=== PATIENT | female | born 1985 | race Two or more races ===

== ENCOUNTER 2017-06-02 14:57 | Emergency (ER) | payer MEDICAID ==
[~2017-06-02] VITALS: Ht 154.9 cm; Wt 59.0 kg
[2017-06-02 15:00] VITALS: Ht 154.9 cm; Wt 59.0 kg
[2017-06-02 16:21] LABS: URINE BLOOD (Dip) POC Trace-intact (NEGATIVE)
[2017-06-02 19:03] LABS: BASOPHIL # 0.1 10^3/ul (0.0-0.1); BASOPHILS % 0.5 % (0.0-2.0); EOSINOPHILS # 0.1 10^3/ul (0.0-0.5); EOSINOPHILS % 0.9 % (0.0-7.0); HEMATOCRIT 39.4 % (37.0-47.0); HEMOGLOBIN 13.4 g/dl (12.0-16.0); LYMPHOCYTES # 2.4 10^3/ul (0.8-2.9); LYMPHOCYTES % 21.5 % (15.0-51.0); MEAN CORPUSCULAR VOLUME 91.2 fl (82.0-101.0); MEAN PLATELET VOLUME 9.5 fl (7.4-10.4); MONOCYTE # 0.6 10^3/ul (0.3-0.9); MONOCYTES % 5.7 % (0.0-11.0); NEUTROPHILS % 71.1 % (39.0-77.0); PLATELET COUNT 235 10^3/UL (140-415); RED BLOOD COUNT 4.32 10^6/ul (4.20-5.40); RED CELL DISTRIBUTION WIDTH 12.1 % (11.5-14.5); WHITE BLOOD COUNT 11.3 10^3/ul (4.8-10.8)
[2017-06-02 19:11] LABS: ADD UMIC YES; UR ASCORBIC ACID NEGATIVE (NEGATIVE); UR BACTERIA FEW /HPF (NONE SEEN); UR BILIRUBIN (Dip) NEGATIVE (NEGATIVE); UR BLOOD (Dip) NEGATIVE (NEGATIVE); UR CLARITY SLIGHTLY CLOUDY (CLEAR); UR COLOR YELLOW (YELLOW); UR GLUCOSE (Dip) NEGATIVE (NEGATIVE); UR KETONES (Dip) NEGATIVE (NEGATIVE); UR LEUKOCYTE ESTERASE (Dip) 3+ Leu/ul (NEGATIVE); UR NITRITE (Dip) NEGATIVE (NEGATIVE); UR RBC 2 /HPF (0-5); UR SQUAMOUS EPITHELIAL CELL FEW /HPF (FEW); UR TOTAL PROTEIN (Dip) NEGATIVE (NEGATIVE); UR UROBILINOGEN (Dip) NEGATIVE (NEGATIVE)
--- NOTE | 2017-06-02 19:23 | RADRPT ---
PROCEDURE: US OB. CLINICAL INDICATION: No heart tone is outside clinic. Vaginal bleeding.. TECHNIQUE: Multiple sonographic images of the pelvis were obtained. Transabdominal and transvagin al views of the pelvis are available for review. The images were reviewed on a PACS workstation. COMPARISON: No prior studies are available for comparison. FINDINGS: A single intrauterine is identified. No heart motion is identified.. Gestational sac measures 2.21 cm diameter correspond to 7 weeks 0 days. pole crown rump length is 3 mm corres ponding to 5 weeks 6 days. There is a 1.9 x 1.3 x 1.9 cm subchorionic hemorrhage is identified adjac ent to the gestational sac. There is a 1.8 x 1.4 x 1.1 cm right-sided hemorrhagic/corpus luteum cys t. The ovaries otherwise unremarkable with vascular flow identified.. There is no adnexal mass. The re is no free fluid. IMPRESSION: 1. Single intrauterine gestation of approximately 7 weeks 0 days by gestational sac size and 5-week 6 days by crown rump length. No heart motion is identified. heart motion is typically s een at this size gestational sac and is usually visible at this size pole. Although findings a re suspicious for demise, a follow-up scan in a few days is recommended for confirmation. 2. Subchorionic hemorrhage present. 3. Hemorrhagic/corpus luteum right ovarian cyst. 4. No free fluid or adnexal mass. RPTAT: HMVK .Constantin Mcdermott MD, MD Date Time Electronically viewed and signed by .Constantin Mcdermott MD, MD on 06/02/2017 19:23 .K/
--- NOTE | 2017-06-17 07:20 | ERD ---
ER Documentation Chief Complaint Chief Complaint pt sent by PMD for repeat US, unable to see heartbeat approx 6 wks preg HPI This is a 32-year-old female who is currently 6 weeks who presents 30 minutes after ultrasound by AUTOMOTIVE SERVICES MANAGER. Patient states that the AUTOMOTIVE SERVICES MANAGER was concerned for demise. Patient states that blood tests were taken there as well. Patient denies any vaginal bleeding or pain. Denies any fever, chills , shortness of breath, chest pain, headache, abdominal pain, nausea or vomiting. No discharge dysuria or hematuria. Patient has no other complaints and describes no other associated manifestations. Nursing notes have been reviewed and are consistent with history given. ROS All systems reviewed and are negative except as per history of present illness. Medications Home Meds Active Scripts Acetaminophen* (Tylophen*) 500 Mg Capsule, 1 CAP PO Q6H Y for PAIN AND OR ELEVATED TEMP, #20 CAP Prov:FARNAZ GODDARD [employer] REP 06/13/17 Reported Medications [none] Unknown Strength No Conflict Check 06/13/17 Allergies Allergies: Coded Allergies: No Known Allergy (Unverified , 06/02/17) PMhx/Soc Medical and Surgical Hx: pt denies Medical Hx History of Surgery: Yes (CSECTION ) Hx Miscellaneous Medical Probl: No () Hx Alcohol Use: No Hx Substance Use: No Hx Tobacco Use: No Smoking Status: Never smoker Physical Exam Physical Exam Const: Healthy-appearing. Well-nourished. Well-developed. No acute distress. Abd: Soft, non tender, non distended. No guarding, masses. Normal bowel sounds. No McBurney's point tenderness. Head: Normocephalic, Atraumatic. Eyes: Non-injected; No scleral erythema, discharge or foreign body. EOMI and ORIANA bilaterally. Ears: Normal External Ears, EACs clear, TM normal bilaterally without erythema. Nose: Normal nose without discharge, septal deviation, or sinus tenderness. Oral: No oral edema visualized. Mucous membranes moist and pink. Neck: No cervical lymphadenopathy, masses or goiter palpated. Trachea midline. Supple ~ No meningismus. Pulm: Good air movement in upper and lower respiratory tracts. No dyspnea, stridor, tripoding or drooling. Clear to auscultation bilaterally. Cardio: Regular rate and rhythm; No murmurs, gallops or rubs auscultated. No JVD grossly observed. Radial and posterior tibial pulses 2+ bilaterally. No cyanosis. Capillary refill less than 2 seconds. MS: Normal motor strength, normal tone with gross examination. Skin: No petechiae or rashes. No ulcer, induration, jaundice. Good turgor. Back: No midline, flank or CVA tenderness. Ext: No cyanosis, edema or palpable cord. Normal movement of all extremities grossly observed. Neur: Awake, alert and oriented x3. Neurovascularly intact bilaterally. Psych: Normal Mood and Affect. Results 24 hrs Laboratory Tests Test 06/02/17 16:19 06/02/17 17:50 Bedside Urine pH (LAB) 6.5 Bedside Urine Protein (LAB) Negative Bedside Urine Glucose (UA) Negative Bedside Urine Ketones (LAB) Negative Bedside Urine Blood Trace-intact Bedside Urine Nitrite (LAB) Negative Bedside Urine Leukocyte Esterase (L 3+ White Blood Count 11.310^3/ul Red Blood Count 4.3210^6/ul Hemoglobin 13.4g/dl Hematocrit 39.4% Mean Corpuscular Volume 91.2fl Mean Corpuscular Hemoglobin 31.0pg Mean Corpuscular Hemoglobin Concent 34.0g/dl Red Cell Distribution Width 12.1% Platelet Count 84380^3/UL Mean Platelet Volume 9.5fl Neutrophils % 71.1% Lymphocytes % 21.5% Monocytes % 5.7% Eosinophils % 0.9% Basophils % 0.5% Nucleated Red Blood Cells % 0.0/100WBC Neutrophils # 8.010^3/ul Lymphocytes # 2.410^3/ul Monocytes # 0.610^3/ul Eosinophils # 0.110^3/ul Basophils # 0.110^3/ul Nucleated Red Blood Cells # 0.010^3/ul Urine Color YELLOW Urine Clarity SLIGHTLY CLOUDY Urine pH 6.0 Urine Specific [place] 1.010 Urine Ketones NEGATIVEmg/dL Urine Nitrite NEGATIVEmg/dL Urine Bilirubin NEGATIVEmg/dL Urine Urobilinogen NEGATIVEmg/dL Urine Leukocyte Esterase 3+[place]/ul Urine Microscopic RBC 2/HPF Urine Microscopic WBC 1/HPF Urine Squamous Epithelial Cells FEW/HPF Urine Bacteria FEW/HPF Urine Hemoglobin NEGATIVEmg/dL Urine Glucose NEGATIVEmg/dL Urine Total Protein NEGATIVEmg/dl Beta HCG, Quantitative 78242.0mIU/ml Procedures/MDM 32-year-old female presenting for repeat ultrasound blood work 30 minutes status post ultrasound and blood work done by AUTOMOTIVE SERVICES MANAGER. Patient has no symptoms. I presented the case my attending who has suggested contacting AUTOMOTIVE SERVICES MANAGER before performing repeat studies. We contacted the AUTOMOTIVE SERVICES MANAGER on 3 separate occasions with the senior receptionist saying that he would call us back without any response. I had attending and suggested repeat studies. Labs and ultrasound were then taken and revealed the following: Ultrasound: 1. Single intrauterine gestation of approximately 7 weeks 0 days by gestational sac size and 5-week 6 days by crown rump length. No heart motion is identified. heart motion is typically seen at this size gestational sac and is usually visible at this size pole. Although findings are suspicious for demise, a follow-up scan in a few days is recommended for confirmation. 2. Subchorionic hemorrhage present. 3. Hemorrhagic/corpus luteum right ovarian cyst. 4. No free fluid or adnexal mass. Patient is being handed off to Alena Wesley PA-C. Departure Diagnosis: Primary Impression: complication Condition: Stable Patient Instructions: Possible Miscarriage (Threatened ) Additional Instructions: Follow up with your AUTOMOTIVE SERVICES MANAGER in 2 days. Be sure to take todays test results ( provided within this packet) with you to your appointment. If you do not have an AUTOMOTIVE SERVICES MANAGER, a handout of locations with contact information will be provided to you. Follow all the recommendations we have previously discussed and the following written recommendations: If symptoms change or worsen, return to the emergency department immediately. Do not put anything in your vagina. Do not have sex, douche, or use tampons; these actions may increase your risk for infection and miscarriage. Rest as directed. Do not exercise or engage in strenuous activities; such activities may cause labor or miscarriage. If you have any further questions, ask before you leave the hospital, or contact the medical provider managing your . Comments DOS: 06/02/17 OBED CARTER PA-C Jun 17, 2017 07:20
== END 2017-06-02 20:43 | disposition home or self-care (01) ==
LOC: FTE 14:57
DX: O20.0 Threatened abortion (principal); Z3A.01 Less than 8 weeks gestation of pregnancy
CPT/HCPCS: 36415; 76801; 76817; 81001; 81003; 84702; 85025; 86900; 86901

== ENCOUNTER 2017-06-13 04:13 | Emergency (ER) | payer MEDICAID ==
[~2017-06-13] VITALS: Ht 162.6 cm; Wt 60.2 kg
[2017-06-13 04:16] VITALS: Ht 162.6 cm; Wt 60.2 kg
[2017-06-13] MEDS ORDERED: SOD CHLORIDE 0.9% 1,000 ML IV STA (04:22)
[2017-06-13] MEDS ORDERED: ACETAMINOPHEN 325 MG TAB PO STA (04:22)
[2017-06-13 04:39] LABS: BASOPHIL # 0.1 10^3/ul (0.0-0.1); BASOPHILS % 0.6 % (0.0-2.0); EOSINOPHILS # 0.2 10^3/ul (0.0-0.5); EOSINOPHILS % 1.6 % (0.0-7.0); HEMATOCRIT 38.5 % (37.0-47.0); HEMOGLOBIN 13.1 g/dl (12.0-16.0); LYMPHOCYTES # 2.3 10^3/ul (0.8-2.9); LYMPHOCYTES % 22.5 % (15.0-51.0); MEAN CORPUSCULAR HEMOGLOBIN 30.9 pg (29.0-33.0); MEAN CORPUSCULAR VOLUME 90.8 fl (82.0-101.0); MONOCYTE # 0.7 10^3/ul (0.3-0.9); MONOCYTES % 6.3 % (0.0-11.0); NEUTROPHIL # 7.1 10^3/ul (1.6-7.5); NEUTROPHILS % 68.7 % (39.0-77.0); PLATELET COUNT 241 10^3/UL (140-415); RED BLOOD COUNT 4.24 10^6/ul (4.20-5.40); RED CELL DISTRIBUTION WIDTH 12.2 % (11.5-14.5); WHITE BLOOD COUNT 10.4 10^3/ul (4.8-10.8)
[2017-06-13 04:40] LABS: URINE BLOOD (Dip) POC 2+ (NEGATIVE)
--- NOTE | 2017-06-13 05:04 | ERD ---
ER Documentation Chief Complaint Chief Complaint 7 wks , vag bleeding today HPI 32-year-old female presents here in emergency department for complaints of vaginal bleeding that started 3 days ago, worse today. Patient is approximately 7 weeks . 3 para 2 0. LMP 04/03/2017. Patient is complaining of pelvic pain cramping pain, 8/10 scale, not better or worse with anything. Patient denies any flank pain. Patient denies any hematuria or dysuria. Patient denies any fever or chills. ROS All systems reviewed and are negative except as per history of present illness. Medications Home Meds Active Scripts Acetaminophen* (Tylophen*) 500 Mg Capsule, 1 CAP PO Q6H Y for PAIN AND OR ELEVATED TEMP, #20 CAP Prov:FARNAZ GODDARD NP 06/13/17 Reported Medications [none] Unknown Strength No Conflict Check 06/13/17 Allergies Allergies: Coded Allergies: No Known Allergy (Unverified , 06/02/17) PMhx/Soc History of Surgery: Yes () Anesthesia Reaction: No Hx Neurological Disorder: No Hx Respiratory Disorders: No Hx Cardiac Disorders: No Hx Psychiatric Problems: No Hx Miscellaneous Medical Probl: No Hx Alcohol Use: No Hx Substance Use: No Hx Tobacco Use: No Smoking Status: Never smoker FmHx Family History: No coronary disease, No diabetes, No other Physical Exam Vitals Vital Signs Date Time Temp Pulse Resp B/P Pulse Ox O2 Delivery O2 Flow Rate FiO2 06/13/17 06:05 97.9 77 18 116/72 97 Room Air 06/13/17 04:16 97.7 70 20 107/56 99 Physical Exam GENERAL: The patient is well developed and appropriate for usual state of health, in no apparent distress. CHEST: Clear to auscultation bilaterally. There are no rales, wheezes or rhonchi. HEART: Regular rate and rhythm. No murmurs, clicks, rubs or gallops. No S3 or S4. ABDOMEN: Soft, nontender and nondistended. Good bowel sounds. No rebound or guarding. No gross peritonitis. No gross organomegaly or masses. No Cuadra sign or McBurney point tenderness. BACK: No midline or flank tenderness. EXTREMITIES: Equal pulses bilaterally. There is no peripheral clubbing, cyanosis or edema. No focal swelling or erythema. Full range of motion. Grossly neurovascularly intact. NEURO: Alert and oriented. Cranial nerves 2-12 intact. Motor strength in all 4 extremities with 5/5 strength. Sensation grossly intact. Normal speech and gait. SKIN: There is no apparent rash or petechia. The skin is warm and dry. HEMATOLOGIC AND LYMPHATIC: There is no evidence of excessive bruising or lymphedema. No gross cervical, axillary, or inguinal lymphadenopathy. VAGINAL: In the vaginal vault, noted tissue in the cervix, the tissue was sent to pathology, patient bleeding much more controlled after removal of the tissue. Cervical loss is closed. No cervical motion tenderness or adnexal tenderness noted Result Diagram: 06/13/17 0430 Results 24 hrs Laboratory Tests Test 06/13/17 04:30 06/13/17 04:35 06/13/17 04:38 White Blood Count 10.410^3/ul Red Blood Count 4.2410^6/ul Hemoglobin 13.1g/dl Hematocrit 38.5% Mean Corpuscular Volume 90.8fl Mean Corpuscular Hemoglobin 30.9pg Mean Corpuscular Hemoglobin Concent 34.0g/dl Red Cell Distribution Width 12.2% Platelet Count 26999^3/UL Mean Platelet Volume 10.0fl Neutrophils % 68.7% Lymphocytes % 22.5% Monocytes % 6.3% Eosinophils % 1.6% Basophils % 0.6% Nucleated Red Blood Cells % 0.0/100WBC Neutrophils # 7.110^3/ul Lymphocytes # 2.310^3/ul Monocytes # 0.710^3/ul Eosinophils # 0.210^3/ul Basophils # 0.110^3/ul Nucleated Red Blood Cells # 0.010^3/ul Beta HCG, Quantitative 06677.0mIU/ml Urine Color YELLOW Urine Clarity CLEAR Urine pH 6.0 Urine Specific [place] 1.020 Urine Ketones NEGATIVEmg/dL Urine Nitrite NEGATIVEmg/dL Urine Bilirubin NEGATIVEmg/dL Urine Urobilinogen NEGATIVEmg/dL Urine Leukocyte Esterase NEGATIVELeu/ul Urine Microscopic RBC 73/HPF Urine Microscopic WBC 3/HPF Urine Squamous Epithelial Cells FEW/HPF Urine Hemoglobin 3+mg/dL Urine Glucose NEGATIVEmg/dL Urine Total Protein NEGATIVEmg/dl Bedside Urine pH (LAB) 6.5 Bedside Urine Protein (LAB) Trace Bedside Urine Glucose (UA) Negative Bedside Urine Ketones (LAB) Negative Bedside Urine Blood 2+ Bedside Urine Nitrite (LAB) Negative Bedside Urine Leukocyte Esterase (L Negative Current Medications Medications (Trade) Dose Ordered Sig/Brigida Route PRN Reason Start Time Stop Time Status Last Admin Dose Admin Sodium Chloride (NS) 1,000 ml @ 1,000 mls/hr Q1H STAT IV 06/13/17 04:22 06/13/17 05:21 DC 06/13/17 04:35 Acetaminophen (Tylenol Tab) 650 mg ONCE STAT PO 06/13/17 04:22 06/13/17 04:24 DC 06/13/17 04:32 Patient was given medication for pain here in emergency department, after treatment, patient verbalized feeling much better. Patient's pain is improved. Normal saline IV bolus was given here in emergency department for rehydration, patient tolerated IV fluids. PROCEDURE: US OB. CLINICAL INDICATION: Vaginal Bleed () LMP 04/04/2017 TECHNIQUE: Transabdominal and transvaginal views of the pelvis are available for review. COMPARISON: US PELVIS 06/02/2017 FINDINGS: Irregular shaped gestational sac is seen in the lower uterine segment measuring 4.3 x 1.4 x 2 cm. The mean sac diameter is 2.55 cm. The estimated gestational age is 7 weeks, 4 days. No pole or yolk sac are identified. The endometrial echo complex is thickened and heterogeneous measuring 1.8 cm. The cervix is closed. The right ovary measures 3.6 x 2.4 x 2.5 cm. Corpus luteal cyst is again seen measuring 1.3 cm. The left ovary measures 3.4 x 2.1 x 2.1 cm. Doppler flow is demonstrated in both ovaries. No adnexal mass lesion is seen. There is no free fluid. IMPRESSION: 1. Irregular gestational sac in the lower uterine segment without evidence of a pole or yolk sac. Findings consistent with failed early .. 2. Right corpus luteal cyst. Physician Marybeth Date Time Electronically viewed and signed by Mai Malin Physician on 06/13/2017 05: 18 CS/ CC: FARNAZ GODDARD [employer] PROCEDURE: US OB. CLINICAL INDICATION: Vaginal bleeding TECHNIQUE: Transabdominal and transvaginal views of the pelvis are available for review. COMPARISON: 04:58 a.m. FINDINGS: There is a 1.6 cm cystic structure in the cervix, unchanged. The ovaries were not visualized. There is no free fluid. RPTAT: AA IMPRESSION: Unchanged cystic structure within the lower uterine segment/cervix, suspicious for an in progress, unchanged. .Erick Padilla MD, MD Date Time Electronically viewed and signed by .Erick Padilla MD, MD on 06/13/2017 06: 08 .S/ CC: FARNAZ GODDARD [employer] Procedures/MDM Medical Decision Making: Patients vaginal bleeding is most likely consistent of possible threatened . Patient does not show any evidence of hypovolemic shock. Patients hemoglobin and hematocrit is stable. There is low suspicion for ectopic . BLAS results show possibility of early failed , 6 weeks with no heart tone, found in the lower segment of the uterus. . BetaHCG Quantitative was still elevated.The patient is Rh+, does not need RhoGAM this time. There is no signs of symptoms of dehydration. There is low suspicion for sepsis. Patient appears well and is hemodynamically stable. Disposition: Home. Condition: Stable Prescription: Tylenol Instructions: Patient is advised to do bed rest, avoid heavy lifting, and avoid having sex until cleared by OB doctor. Patient is advised to follow up with OB doctor or here in the ER for repeat blas and beta hcg. Patient is advised that is symptoms are worst, severe bleeding, dizziness, severe abdominal pain, fever , worst signs and symptoms to return to the emergency department immediately. Disclaimer: Inadvertent spelling and grammatical errors are likely due to EHR/ dictation software use and do not reflect on the overall quality of patient care. Also, please note that the electronic time recorded on this note does not necessarily reflect the actual time of the patient encounter. Departure Diagnosis: Primary Impression: Vaginal bleeding in patient at less than 20 weeks gestation Condition: Stable Patient Instructions: Bleeding During Early Additional Instructions: Patient is advised to do bed rest, avoid heavy lifting, and avoid having sex until cleared by OB doctor. Patient is advised to follow up with OB doctor or here in the ER for repeat blas and beta hcg. Patient is advised that is symptoms are worst, severe bleeding, dizziness, severe abdominal pain, fever, worst signs and symptoms to return to the emergency department immediately. FARNAZ GODDARD NP Jun 13, 2017 05:04
[2017-06-13 05:11] LABS: ADD UMIC YES; UR ASCORBIC ACID NEGATIVE (NEGATIVE); UR BILIRUBIN (Dip) NEGATIVE (NEGATIVE); UR BLOOD (Dip) 3+ mg/dL (NEGATIVE); UR CLARITY CLEAR (CLEAR); UR COLOR YELLOW (YELLOW); UR GLUCOSE (Dip) NEGATIVE (NEGATIVE); UR KETONES (Dip) NEGATIVE (NEGATIVE); UR LEUKOCYTE ESTERASE (Dip) NEGATIVE Leu/ul (NEGATIVE); UR NITRITE (Dip) NEGATIVE (NEGATIVE); UR RBC 73 /HPF (0-5); UR SQUAMOUS EPITHELIAL CELL FEW /HPF (FEW); UR TOTAL PROTEIN (Dip) NEGATIVE (NEGATIVE); UR UROBILINOGEN (Dip) NEGATIVE (NEGATIVE)
--- NOTE | 2017-06-13 05:18 | RADRPT ---
PROCEDURE: US OB. CLINICAL INDICATION: Vaginal Bleed () LMP 04/04/2017 TECHNIQUE: Transabdominal and transvaginal views of the pelvis are available for review. COMPARISON: US PELVIS 06/02/2017 FINDINGS: Irregular shaped gestational sac is seen in the lower uterine segment measuring 4.3 x 1.4 x 2 cm. Th e mean sac diameter is 2.55 cm. The estimated gestational age is 7 weeks, 4 days. No pole or yolk sac are identified. The endometrial echo complex is thickened and heterogeneous measuring 1.8 c m. The cervix is closed. The right ovary measures 3.6 x 2.4 x 2.5 cm. Corpus luteal cyst is again seen measuring 1.3 cm. The left ovary measures 3.4 x 2.1 x 2.1 cm. Doppler flow is demonstrated in both ovaries. No adnexal mass lesion is seen. There is no free fluid. IMPRESSION: 1. Irregular gestational sac in the lower uterine segment without evidence of a pole or yolk sac. Findings consistent with failed early .. 2. Right corpus luteal cyst. Physician Marybeth Date Time Electronically viewed and signed by Physician Marybeth on 06/13/2017 05:18 CS/
[2017-06-13] MEDS ORDERED: IBUP-1542 PO (05:29)
[2017-06-13] MEDS ORDERED: HYDR-906 PO (05:29)
[2017-06-13 06:05] VITALS: BP 116/72; PULSE 77; RESP 18; TEMP 97.9
[2017-06-13] MEDS ORDERED: ACET500C5 PO (06:06)
--- NOTE | 2017-06-13 06:08 | RADRPT ---
PROCEDURE: US OB. CLINICAL INDICATION: Vaginal bleeding TECHNIQUE: Transabdominal and transvaginal views of the pelvis are available for review. COMPARISON: 04:58 a.m. FINDINGS: There is a 1.6 cm cystic structure in the cervix, unchanged. The ovaries were not visualized. There is no free fluid. RPTAT: AA IMPRESSION: Unchanged cystic structure within the lower uterine segment/cervix, suspicious for an in pr ogress, unchanged. .Erick Padilla MD, MD Date Time Electronically viewed and signed by .Erick Padilla MD, on 06/13/2017 06:08 .S/
== END 2017-06-13 07:49 | disposition home or self-care (01) ==
LOC: FTE 04:13
DX: O20.9 Hemorrhage in early pregnancy, unspecified (principal); R10.2 Pelvic and perineal pain; Z3A.01 Less than 8 weeks gestation of pregnancy
CPT/HCPCS: 36415; 76801; 76817; 81001; 84702; 85025; 86900; 86901; 88305; J7030; Z7502; Z7610; 81003